=== PATIENT | male | born 1940 | race Caucasian/White ===

== ENCOUNTER → 2018-03-27 | Outpatient (CLI) | payer MEDICARE, OTHER ==
[~2018-03-27] MED LIST: ANTIVERT12.5 MG PO; BACTRIM DS TAB1 EACH PO; LISINOPRIL-HCT1 EAC1 PO
== END ==
LOC: MRI 14:35
PROVIDERS: ATTEND Family Medicine
DX: S33.5XXA Sprain of ligaments of lumbar spine, initial encounter (principal); M12.88 Other specific arthropathies, not elsewhere classified, other specified site; M62.838 Other muscle spasm
CPT/HCPCS: 72148

== ENCOUNTER 2018-04-09 23:02 | Inpatient (IN) | payer MEDICARE, OTHER ==
[~2018-04-09] VITALS: Ht 172.7 cm; Wt 103.1 kg
[2018-04-09 23:49] LABS: BASOPHILS # (AUTO) 0.1 (0.0-0.1); BASOPHILS % 0.8 % (0.0-1.0); EOSINOPHILS # (AUTO) 0.3 (0.0-0.4); EOSINOPHILS % 3.7 % (0.0-6.0); HEMATOCRIT 40.2 % (38.2-49.6); HEMOGLOBIN 14.2 g/dL (14.0-18.0); LYMPHOCYTES # (AUTO) 2.8 (1.0-3.2); LYMPHOCYTES % 33.1 % (18.0-39.1); MEAN CORPUSCULAR HEMOGLOBIN 32.3 pg (28-32); MEAN CORPUSCULAR HGB CONC 35.3 g/dL (31-35); MEAN CORPUSCULAR VOLUME 91.4 fL (81-99); MONOCYTES # (AUTO) 0.7 (0.2-0.8); MONOCYTES % 8.1 % (4.4-11.3); NEUTROPHILS # (AUTO) 4.6 (2.1-6.9); NEUTROPHILS % 54.1 % (38.7-80.0); PLATELET COUNT 190 x10e3/uL (140-360); RED CELL DISTRIBUTION WIDTH 13.2 % (11.7-14.4)
[2018-04-10] VITALS (9 sets, daily range): BP systolic 109–147; BP diastolic 79–86
[2018-04-10] MEDS: PIPER-TAZ 3.375 GM 50 ML IV SCH ×4 (00:03→21:33)
[2018-04-10 00:16] LABS: ALBUMIN/GLOBULIN RATIO 1.1 (0.8-2.0); ANION GAP 15.7 mmol/L (8-16); CALCIUM 11.5 mg/dL (8.4-10.2); CREATININE, SERUM 1.21 mg/dL (0.72-1.25); POTASSIUM 3.7 mmol/L (3.5-5.1)
[2018-04-10] MEDS: VANCOMYCIN 1GM/NS 250 ML 250 ML IV SCH ×3 (00:43→22:14)
[2018-04-10] MEDS ORDERED: FLOMAX0.4 MG PO (00:44)
[2018-04-10] MEDS ORDERED: ONDANSETRON HCL INJ 2 MG/ML VIAL IV PRN (00:45)
[2018-04-10] MEDS ORDERED: ACETAMINOPHEN 325 MG TAB PO PRN (00:45)
[2018-04-10] MEDS: SODIUM CHLORIDE 0.9% 1000ML 1,000 ML IV SCH ×3 (02:07→20:39)
[2018-04-10] MEDS: HYDROMORPHONE 1MG/1ML INJ IV PRN ×3 (05:35→22:14)
[2018-04-10] MEDS: LISINOPRIL 20 MG TAB PO SCH (14:20)
[2018-04-10] MEDS: TAMSULOSIN HCL 0.4 MG CAP PO SCH (14:20)
[2018-04-10] MEDS: HYDROCHLOROTHIAZIDE 25 MG TAB PO SCH (14:20)
[2018-04-11] VITALS (8 sets, daily range): BP systolic 110–128; BP diastolic 63–82
[2018-04-11] MEDS: SODIUM CHLORIDE 0.9% 1000ML 1,000 ML IV SCH ×2 (00:32→08:32)
[2018-04-11 04:39] LABS: BASOPHILS # (AUTO) 0.1 (0.0-0.1); BASOPHILS % 0.8 % (0.0-1.0); EOSINOPHILS # (AUTO) 0.3 (0.0-0.4); EOSINOPHILS % 4.1 % (0.0-6.0); HEMATOCRIT 36.9 % (38.2-49.6); HEMOGLOBIN 12.6 g/dL (14.0-18.0); LYMPHOCYTES # (AUTO) 2.8 (1.0-3.2); LYMPHOCYTES % 35.7 % (18.0-39.1); MEAN CORPUSCULAR HEMOGLOBIN 31.9 pg (28-32); MEAN CORPUSCULAR HGB CONC 34.1 g/dL (31-35); MEAN CORPUSCULAR VOLUME 93.4 fL (81-99); MONOCYTES # (AUTO) 0.5 (0.2-0.8); MONOCYTES % 6.7 % (4.4-11.3); NEUTROPHILS # (AUTO) 4.1 (2.1-6.9); NEUTROPHILS % 52.3 % (38.7-80.0); PLATELET COUNT 168 x10e3/uL (140-360); RED BLOOD COUNT 3.95 x10e6/uL (4.3-5.7); RED CELL DISTRIBUTION WIDTH 13.1 % (11.7-14.4)
[2018-04-11 04:58] LABS: ALANINE AMINOTRANSFERASE 37 IU/L (0-55); ALBUMIN 3.3 g/dL (3.5-5.0); ALBUMIN/GLOBULIN RATIO 1.1 (0.8-2.0); ALKALINE PHOSPHATASE 79 IU/L (40-150); ANION GAP 9.2 mmol/L (8-16); BLOOD UREA NITROGEN 24 mg/dL (7-26); BUN/CREATININE RATIO 21 (6-25); CALCIUM 10.1 mg/dL (8.4-10.2); CARBON DIOXIDE 28 mmol/L (22-29); CHLORIDE 107 mmol/L (98-107); CREATININE, SERUM 1.15 mg/dL (0.72-1.25); EST GLOMERULAR FILTRATION RATE > 60 ML/MIN (60-); GLUCOSE 93 mg/dL (74-118); POTASSIUM 3.2 mmol/L (3.5-5.1); SODIUM 141 mmol/L (136-145)
[2018-04-11] MEDS: PIPER-TAZ 3.375 GM 50 ML IV SCH ×3 (04:59→21:51)
[2018-04-11] MEDS: LISINOPRIL 20 MG TAB PO SCH (09:00)
[2018-04-11] MEDS: HYDROCHLOROTHIAZIDE 25 MG TAB PO SCH (09:00)
[2018-04-11] MEDS: TAMSULOSIN HCL 0.4 MG CAP PO SCH (09:00)
[2018-04-11] MEDS: VANCOMYCIN 1GM/NS 250 ML 250 ML IV SCH ×2 (11:15→23:15)
[2018-04-11] MEDS: HYDROMORPHONE 1MG/1ML INJ IV PRN (14:10)
[2018-04-11] MEDS ORDERED: POTASSIUM CHLORIDE 20 MEQ TAB CR PO ONE (16:00)
--- NOTE | 2018-04-11 16:39 | Progress Note ---
DATE: INTERNAL MEDICINE PROGRESS NOTE SUBJECTIVE: Patient is doing well. No significant complaint. PHYSICAL EXAMINATION VITAL SIGNS: Blood pressure is 127/72. Temperature 98.3. Heart rate 60 per minute. Respiratory rate is 20 per minute. Oxygen saturation 95%. HEART: Regular rhythm. Normal S1, S2 sounds. LUNGS: Clear bilaterally. ABDOMEN: Soft. EXTREMITIES: Significantly decreased redness on both lower extremities. BLOOD WORK: BMP: Sodium 141, potassium 3.2, chloride 107, CO2 28, BUN 24, creatinine 1.15. Glucose 93. On the CBC, white blood count 7.90, hemoglobin 12.6, hematocrit 36.9, platelet count 168,000. AST 27, ALT 37, total bilirubin 0.4, alkaline phosphatase 99. FINAL IMPRESSION 1. Cellulitis on both lower extremities. 2. Hypertension. 3. Hypertensive nephropathy. 4. Krogu-ke-crgzent renal failure, stage 2 to 3. 5. Hypokalemia. PLAN OF TREATMENT: Continue Zosyn 3.375 grams IV piggyback q.8 h., vancomycin 1 g IV piggyback twice a day. We are going to continue lisinopril 20 mg daily. Hydrochlorothiazide is going to be discontinued. Continue Tylenol 650 mg q.4 h. as needed for pain or fever, Dilaudid 1 mg IV q.3 h. as needed, Flomax 0.4 mg daily. As I said, tentative discharge is for tomorrow should the patient feel better and should the redness be gone. If okay with Dr. Abreu, we can switch the antibiotic to an oral antibiotic and let the patient go home tomorrow as long as there is significant improvement in his cellulitis and no fever. We are going to replace the potassium with 40 mEq p.o. today. We are going to recheck the potassium and magnesium levels tomorrow. Job#: [id number]
[2018-04-12] VITALS: BP 127/77
[2018-04-12 04:00] VITALS: BP 137/82
[2018-04-12] MEDS: PIPER-TAZ 3.375 GM 50 ML IV SCH (05:28)
[2018-04-12 05:47] LABS: ANION GAP 10.6 mmol/L (8-16); BLOOD UREA NITROGEN 19 mg/dL (7-26); BUN/CREATININE RATIO 19 (6-25); CALCIUM 10.4 mg/dL (8.4-10.2); CARBON DIOXIDE 26 mmol/L (22-29); CHLORIDE 107 mmol/L (98-107); EST GLOMERULAR FILTRATION RATE > 60 ML/MIN (60-); GLUCOSE 89 mg/dL (74-118); POTASSIUM 3.6 mmol/L (3.5-5.1); SODIUM 140 mmol/L (136-145)
[2018-04-12 07:30] VITALS: BP 137/82
[2018-04-12 08:00] VITALS: BP 128/87
[2018-04-12] MEDS: TAMSULOSIN HCL 0.4 MG CAP PO SCH (08:30)
[2018-04-12] MEDS ORDERED: LISINOPRIL 20 MG TAB PO SCH (09:00)
[2018-04-12] MEDS ORDERED: HYDROCHLOROTHIAZIDE 25 MG TAB PO SCH (09:00)
[2018-04-12 12:00] VITALS: BP 113/76
[2018-04-12] MEDS ORDERED: DOXYCYCLINE HY100 MG PO (14:54)
--- NOTE | 2018-04-12 15:42 | Progress Note ---
DATE: INTERNAL MEDICINE PROGRESS NOTE DICTATION STOPPED AT THIS POINT. Job#: [id number]
--- NOTE | 2018-04-12 20:50 | Discharge Summary ---
HISTORY OF PRESENT ILLNESS: A 77-year-old male, who came with cellulitis on both lower extremities, which is practically resolved right now. He has no fever. White blood count is normal. We are going to discharge him home if okay with Dr. Abreu. PHYSICAL EXAM VITALS: Blood pressure 128/87, temperature 96.2, heart rate 63 per minute, respiratory rate is 18 per minute, oxygen saturation 95%. EXTREMITIES: Show significantly decrease on the redness on both lower extremities, very minimal macular spots on his feet, but no significant redness, no fever, no white blood count. On the BMP, sodium 140, potassium 3.6, chloride 107, CO2 26, BUN 19, creatinine 1.0, glucose 89. On the CBC, white blood count 7.90, hemoglobin 12.6, hematocrit 36.9, platelet count 168,000. AST 57, ALT 37, total bilirubin 0.4, alkaline phosphatase of 79. FINAL IMPRESSIONS 1. Cellulitis on both lower extremities. 2. Hypertension. 3. Benign prostatic hypertrophy. PLAN OF TREATMENT: Patient going to go home with doxycycline 100 mg twice a day for 10 days. Resume rest of medication, which include lisinopril 20 mg daily. Flomax 0.4 mg daily. Hydrochlorothiazide 25 mg daily. Follow up with Dr. Rodriguez, his primary care physician. Discharge okay with Dr. Abreu. BAILEY BONILLA MD Job#: [id number] CQ
== END 2018-04-12 15:18 | disposition home or self-care (01) | DRG 603 ==
LOC: ER 23:02 → ERHOLD 04-10 00:32 → MED/SURG3 04-10 01:37
DX: L03.116 Cellulitis of left lower limb (principal); N17.9 Acute kidney failure, unspecified; L03.115 Cellulitis of right lower limb; I12.9 Hypertensive chronic kidney disease with stage 1 through stage 4 chronic kidney disease, or unspecified chronic kidney disease; N18.3 Chronic kidney disease, stage 3 (moderate); E87.6 Hypokalemia; N40.0 Benign prostatic hyperplasia without lower urinary tract symptoms
CPT/HCPCS: 36415; 80048; 80053; 83735; 85025; 87040; 99284; J1170; J2543; J3370; J7030

== ENCOUNTER 2018-04-30 07:39 | Observation (INO) | payer MEDICARE, OTHER ==
[2018-04-28 17:40] LABS: BASOPHILS # (AUTO) 0.1 (0.0-0.1); BASOPHILS % 0.7 % (0.0-1.0); EOSINOPHILS # (AUTO) 0.3 (0.0-0.4); EOSINOPHILS % 2.9 % (0.0-6.0); HEMATOCRIT 40.6 % (38.2-49.6); HEMOGLOBIN 13.8 g/dL (14.0-18.0); LYMPHOCYTES % 32.8 % (18.0-39.1); MEAN CORPUSCULAR HEMOGLOBIN 31.6 pg (28-32); MEAN CORPUSCULAR VOLUME 92.9 fL (81-99); MONOCYTES # (AUTO) 0.6 (0.2-0.8); MONOCYTES % 6.7 % (4.4-11.3); NEUTROPHILS # (AUTO) 5.2 (2.1-6.9); NEUTROPHILS % 56.7 % (38.7-80.0); PLATELET COUNT 184 x10e3/uL (140-360); RED BLOOD COUNT 4.37 x10e6/uL (4.3-5.7); RED CELL DISTRIBUTION WIDTH 13.1 % (11.7-14.4)
[2018-04-28 17:49] LABS: INR 1.21; PROTHROMBIN TIME 14.4 seconds (11.9-14.5)
[2018-04-28 17:50] LABS: PARTIAL THROMBOPLASTIN TIME 29.7 seconds (23.8-35.5)
[2018-04-28 17:54] LABS: ANION GAP 12.8 mmol/L (8-16); BLOOD UREA NITROGEN 24 mg/dL (7-26); BUN/CREATININE RATIO 21 (6-25); CALCIUM 11.7 mg/dL (8.4-10.2); CARBON DIOXIDE 30 mmol/L (22-29); CHLORIDE 106 mmol/L (98-107); CREATININE, SERUM 1.16 mg/dL (0.72-1.25); EST GLOMERULAR FILTRATION RATE > 60 ML/MIN (60-); GLUCOSE 98 mg/dL (74-118); POTASSIUM 3.8 mmol/L (3.5-5.1); SODIUM 145 mmol/L (136-145)
--- NOTE | 2018-04-29 14:22 | Diagnostic Imaging Report ---
PROCEDURE: Frontal and lateral views of the chest. COMPARISON: None. INDICATIONS: PRE-OP FINDINGS: Lines/tubes: None. Lungs: The lungs are moderately inflated and clear. There is no evidence of pneumonia or pulmonary edema. Pleura: There is no pleural effusion or pneumothorax. Heart and mediastinum: The heart and the mediastinum are normal. Bones: No acute bony abnormality. IMPRESSION: No acute cardiopulmonary disease. Dictated by: Preston Land M.D. on 04/29/2018 at 14:28 Electronically approved by: Preston Land M.D. on 04/29/2018 at 14:28
[~2018-04-30] VITALS: Ht 172.7 cm; Wt 103.4 kg
[~2018-04-30 07:39] MED LIST changes: +ACETAMINOPHEN 1000 MG/100 ML 100 ML IV ONE; +DOXYCYCLINE HY100 MG PO; +FLOMAX0.4 MG PO; +LIDOCAINE HCL (LTA) 4 ML SOLN ONE
[2018-04-30] MEDS ORDERED: BUPIVACAINE 0.5%/EPI 30 ML SDV INJ ONE (08:39)
[2018-04-30] MEDS ORDERED: BACITRACIN 50,000 UNIT VIAL ONE (08:39)
[2018-04-30] MEDS ORDERED: GELATIN SPONGE SZ 100 ONE (08:39)
[2018-04-30] MEDS ORDERED: THROMBIN FOR SOLN 5,000 UNIT VIAL ONE (08:39)
[2018-04-30] MEDS ORDERED: CEFAZOLIN SOD 1 GM VIAL ONE (08:54)
[2018-04-30] MEDS ORDERED: ZOLPIDEM TARTRATE 5 MG TAB PO PRN (11:45)
[2018-04-30] MEDS ORDERED: MAGNESIUM/ALUMINUM/SIMETHICONE 30 ML UDC PO PRN (11:45)
[2018-04-30] MEDS ORDERED: ONDANSETRON HCL INJ 2 MG/ML VIAL IV PRN (11:45)
[2018-04-30] MEDS ORDERED: OXYCODONE/ACETAMINOPHEN 5-325 1 EACH TABLET PO PRN (11:45)
[2018-04-30] MEDS ORDERED: MORPHINE SULFATE 5 MG/ML VIAL IM PRN (11:45)
[2018-04-30] MEDS ORDERED: CEPACOL SORE THROAT LOZENGES PO PRN (11:45)
[2018-04-30] MEDS ORDERED: ACETAMINOPHEN 325 MG TAB PO PRN (11:45)
[2018-04-30] MEDS ORDERED: CARISOPRODOL 350 MG TAB PO PRN (11:45)
[2018-04-30] MEDS ORDERED: PROMETHAZINE HCL (IM) 25 MG/ML VIAL IM PRN (11:45)
[2018-04-30] MEDS: LACTATED RINGER'S 1,000 ML IV SCH ×2 (11:45→20:05)
[2018-04-30 13:05] VITALS: BP 116/85
--- NOTE | 2018-04-30 13:45 | Operative Report ---
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 POSTOPERATIVE DIAGNOSIS: Left L4-5 foraminal disk herniation, M51.16. PROCEDURE: Left L4-5 laminotomy, medial facetectomy and microsurgical diskectomy, [id number]. ANESTHESIA: General. INDICATIONS: The patient is a 77-year-old man, who presents with left L4-5 disk herniation with superior and lateral migration of the extruded disk fragment into the proximal portion of the left L4 neural foramen symptomatic with left L4 radiculopathy. He was taken to the operating room for a microsurgical resection of the extruded disk fragment. DESCRIPTION OF PROCEDURE: After the induction of general anesthesia, the patient was placed on the operating table in the prone position over a Darion frame. The lumbar region was prepped and draped in a sterile fashion. A preoperative x-ray was obtained. A small midline incision was created. The lumbar fascia was opened to the left of the midline, and subperiosteal dissection was carried out to expose the left-sided L4 and L5 laminae and the medial aspect of the L4-5 facet joint. A 2nd x-ray confirmed correct localization. The operating microscope was brought in. A high-speed drill equipped with a isaura bur was used to drill the inferior aspect of the lamina of L4 and the medial rim of the L4-5 facet joint. The medial ligamentum flavum was resected. The lateral margin of the dural sac was exposed. A ball probe was passed superolaterally in the direction of the left L4 neural foramina and used to retrieve the edge of the large extruded disk material, which was grasped with a micro-pituitary rongeur and removed. This maneuver was repeated numerous times, and numerous fragments of disk were retrieved and removed from the left L4 neural foramen until the foramen was fully decompressed and a ball probe could be passed laterally without encountering any resistance. The disk annulus was then examined and found to be relatively intact. The disk space was not violated during this operation. The wound was irrigated with bacitracin solution. Meticulous hemostasis was secured. A small piece of Gelfoam was left in the lateral recess for hemostasis. The wound was closed in multiple layers with #0 and 2-0 Vicryl sutures. The skin was closed with 3-0 Monocryl sutures in a subcuticular fashion. Steri-Strips and a dressing were applied. The patient was awakened, extubated, and taken to the postanesthesia care unit in stable condition. No intraoperative complications were encountered. Estimated blood loss was 10 mL. Job#: [id number]
[2018-04-30 13:49] VITALS: BP 116/85
[2018-04-30] MEDS ORDERED: CEFAZOLIN SOD 1 GM/D5W 50ML 50 ML IV SCH (14:00)
[2018-04-30] MEDS: CEFAZOLIN SOD 1 GM VIAL IV SCH ×2 (15:05→20:45)
[2018-04-30 15:08] VITALS: BP 113/74
[2018-04-30] MEDS ORDERED: FENTANYL CITRATE/PF 100MCG/2 ML INJ ONE (16:44)
[2018-04-30] MEDS ORDERED: DEXAMETHASONE SOD PHOS INJ 4 MG/ML VIAL ONE (18:09)
[2018-04-30] MEDS ORDERED: PROPOFOL IV EMULSION 10 MG/ML 20 ML VIAL ONE (18:09)
[2018-04-30] MEDS ORDERED: GLYCOPYRROLATE INJ 1MG/ 5 ML SYR ONE (18:09)
[2018-04-30] MEDS ORDERED: NEOSTIGMINE 5 MG/5ML SYR ONE (18:09)
[2018-04-30] MEDS ORDERED: ROCURONIUM BROMIDE 10 MG/ML 5ML VIAL ONE (18:09)
[2018-04-30] MEDS ORDERED: LIDOCAINE HCL 2% LOCAL INJ 5 ML SDV VIAL INJ ONE (18:09)
[2018-04-30] MEDS ORDERED: ONDANSETRON HCL INJ 2 MG/ML VIAL ONE (18:09)
[2018-04-30] MEDS ORDERED: SEVOFLURANE INHAL SOLN 250 ML PEN BTL ONE (18:09)
[2018-04-30] MEDS: TAMSULOSIN HCL 0.4 MG CAP PO SCH (18:34)
[2018-04-30 19:05] VITALS: BP 117/84
[2018-04-30 20:00] VITALS: BP 117/84
[2018-05-01 00:15] VITALS: BP 95/55
[2018-05-01] MEDS: LACTATED RINGER'S 1,000 ML IV SCH (04:25)
[2018-05-01 05:15] VITALS: BP 101/59
[2018-05-01] MEDS: CEFAZOLIN SOD 1 GM VIAL IV SCH (05:44)
[2018-05-01 08:12] VITALS: BP 86/47
[2018-05-01] MEDS ORDERED: NORCO 7.5-3251 EACH PO (08:25)
[2018-05-01 08:55] VITALS: BP 86/47
[2018-05-01] MEDS ORDERED: HYDROCHLOROTHIAZIDE 25 MG TAB PO SCH (09:00)
[2018-05-01] MEDS ORDERED: LISINOPRIL 20 MG TAB PO SCH (09:00)
[2018-05-01] MEDS: TAMSULOSIN HCL 0.4 MG CAP PO SCH (09:38)
[2018-05-01 12:02] VITALS: BP 81/51
[2018-05-01] MEDS ORDERED: TAMSULOSIN HCL 0.4 MG CAP PO SCH (21:00)
== END 2018-05-01 12:52 | disposition home or self-care (01) ==
LOC: OR 07:39 → PACU V 11:46 → IMCU 12:42
PROVIDERS: ADMIT Neurological Surgery; ATTEND Neurological Surgery
DX: M51.16 Intervertebral disc disorders with radiculopathy, lumbar region (principal); I10 Essential (primary) hypertension
CPT/HCPCS: 36415; 63047; 71046; 72020; 80048; 85025; 85610; 85730; 86850; 86900; 86920; 88304; 93005; G0378 ×2; J0690 ×2; J1100; J2001; J2270; J2405; J3490; J7120

== ENCOUNTER → 2018-06-04 | Outpatient (CLI) | payer MEDICARE, OTHER ==
[~2018-06-04] MED LIST changes: -ACETAMINOPHEN 1000 MG/100 ML 100 ML IV ONE; +GADOBENATE DIMEGLUMINE 1 ML IV ONE; -LIDOCAINE HCL (LTA) 4 ML SOLN ONE; +NORCO 7.5-3251 EACH PO
[2018-06-04 11:01] LABS: BLOOD UREA NITROGEN 25 mg/dL (7-26); BUN/CREATININE RATIO 26 (6-25); CREATININE, SERUM 0.98 mg/dL (0.72-1.25); EST GLOMERULAR FILTRATION RATE > 60 ML/MIN (60-)
--- NOTE | 2018-06-05 13:35 | Diagnostic Imaging Report ---
History: 77-year-old male with radiculopathy the lumbar region, back and left leg pain for over 3 months and prior surgery in April 2018 Comparison studies: MRI lumbar spine 03/27/2018 Technique: Sagittal T1, T2, STIR, axial T1 and T2, post contrast axial and sagittal T1 Intravenous contrast: 20 cc cc of MultiHance Findings: Number of lumbar vertebral bodies:Five. Alignment: Normal lumbar lordosis. No scoliosis . Lower thoracic cord: Normal in signal and morphology. The tip of the conus is at L1-L2 . Soft tissues: No T2 hyperintense inflammatory changes. Paraspinal muscles: Stable fatty infiltration of the paraspinous muscles Vertebrae: No compression fractures, infection or neoplasm. The previously noted lesions in T12 and L3 are stable, likely representing intraosseous hemangiomas Degenerative changes: L1-L2: Stable decreased T2 signal within the disc. Stable symmetric bulging disc with 2.3 mm of posterior mass effect. Spinal canal widely patent. Bilateral neuroforamina are widely patent. L2-L3: Stable decreased T2 signal within the disc. Stable symmetric bulging disc with 2.6 mm of posterior mass effect. Spinal canal widely patent. Mild narrowing of bilateral foramen. L3-L4: Stable decreased T2 signal within the disc space. Mild interval decrease height of disc. Symmetric bulging disc with 1.7 mm of posterior mass effect, slightly increased. Mild to moderate narrowing of the spinal canal. Mild thickening of the ligamentum flavum. Mild to moderate bilateral foraminal narrowing, stable. 4 mm synovial cyst associated with the right facet joint L4-L5: Postoperative changes are noted. The previously noted left foraminal 15 x 13 x 6 mm disc extrusion is no longer present. Enhancing scar surrounds the left foramen. There is a nonenhancing left asymmetric bulging disc surrounded by scar. Nonenhancing portion demonstrates 4 mm of posterior mass effect, and overlying 1 mm enhancing scar. Stable decreased T2 signal within the disc space. Spinal canal is widely patent. Mild to moderate right foraminal narrowing. Moderate to severe left foraminal narrowing from combination of enhancing scar and asymmetric bulging disc. Fluid within the left facet joints, likely postsurgical. Stable bilateral facet arthropathy. L5-S1: Stable decreased T2 signal within the disc. Symmetric bulging disc with 2.6 mm of posterior mass effect. Spinal canal is widely patent. Mild narrowing at the right foramen. Moderate narrowing of the left foramen. Stable bilateral facet arthropathy. Additional findings: None IMPRESSION: 1. Postoperative changes at L4-L5 with removal of the 15 mm left foraminal disc extrusion with no evidence of residual. Left asymmetric bulging disc at the same level with 4 mm of posterior mass effect and 1 mm of adjacent enhancing scar. 2. Foraminal narrowing greatest on the left, L4-L5 moderate to severe, and L5-S1 moderate. Signed by: Dr. Manan Clark M.D. on 06/05/2018 1:31 PM
== END ==
LOC: MRI 10:01
PROVIDERS: ATTEND Neurological Surgery
DX: M51.16 Intervertebral disc disorders with radiculopathy, lumbar region (principal)
CPT/HCPCS: 36415; 72158; 82565; 84520

== ENCOUNTER 2018-07-17 10:00 | Outpatient (RCR) | payer MEDICARE, OTHER ==
[~2018-07-17 10:00] MED LIST changes: -GADOBENATE DIMEGLUMINE 1 ML IV ONE
== END 2018-07-22 ==
LOC: PT 10:00
PROVIDERS: ATTEND Neurological Surgery
DX: M51.16 Intervertebral disc disorders with radiculopathy, lumbar region (principal)
CPT/HCPCS: 97110 ×5; 97162; G8978; G8979

== ENCOUNTER → 2018-08-21 | Outpatient (RCR) | payer MEDICARE, OTHER | LOC: PT 07-28 10:20 | PROVIDERS: ATTEND Neurological Surgery | DX: M51.16 Intervertebral disc disorders with radiculopathy, lumbar region (principal) | CPT/HCPCS: 97010; 97110 ×10; 97139; 97140 ×5; 97530; G8978; G8979 ==

== ENCOUNTER → 2018-09-29 | Outpatient (CLI) | payer MEDICARE, OTHER ==
[~2018-09-29] MED LIST changes: +GADOBENATE DIMEGLUMINE 1 ML IV ONE
[2018-09-29 09:19] LABS: BLOOD UREA NITROGEN 23 mg/dL (7-26); BUN/CREATININE RATIO 27 (6-25); CREATININE, SERUM 0.86 mg/dL (0.72-1.25); EST GLOMERULAR FILTRATION RATE > 60 ML/MIN (60-)
--- NOTE | 2018-09-29 17:06 | Diagnostic Imaging Report ---
History: 78-year-old male 7 months status post fall, status post discectomy April 2018, left leg pain Comparison studies: 03/27/2018 and 06/04/2018 Technique: Sagittal T1, T2, STIR, axial T1 and T2, post contrast axial and sagittal T1 Intravenous contrast: 20 cc of MultiHance Findings: Number of lumbar vertebral bodies:Five. Alignment: Normal lumbar lordosis. No scoliosis . Lower thoracic cord: Normal in signal and morphology. The tip of the conus is at L1-L2 . Soft tissues: No T2 hyperintense inflammatory changes. Paraspinal muscles: Stable fatty infiltration of the paraspinous muscles Vertebrae: No compression fractures, infection or neoplasm. Degenerative changes: L1-L2: Stable with decreased T2 signal within the disc. Stable symmetric bulging disc with 2.6 mm of posterior mass effect. Spinal canal is widely patent. Bilateral neuroforamina are widely patent. L2-L3: Stable decreased T2 signal within the disc. Symmetric bulging disc slightly increased with 3.3 mm of posterior mass effect. Spinal canal is widely patent. Mild narrowing of bilateral neural foramen which is stable. L3-L4: Stable decreased T2 signal within the disc space. Stable symmetric bulging disc with 1.8 mm of posterior mass effect. Stable mild thickening of the ligamentum flavum. Stable mild narrowing of the spinal canal. Stable so small synovial cyst. Syht-ja-ekriwalg stable foraminal narrowing. L4-L5: Stable postoperative changes. Within the left lateral recess and the left foramen there is a 9 x 7 mm intermediate T1 and T2 signal structure, that is new compared to the prior study which demonstrates near complete enhancement on postcontrast imaging consistent with scar. Better visualization is likely due to decrease in postoperative inflammation. Within the far lateral portion of the foramen there is a 5 mm region that does not enhance. Stable postoperative enhancement is seen along the operative tract. Marked fluid is present within the left facet joint. Stable bilateral lateral facet arthropathy. L5-S1: Stable decreased T2 signal within the disc. Symmetric bulging disc with 2 mm posterior mass effect. Spinal canal is widely patent. Stable mild narrowing of right foramen. Stable moderate narrowing of the left foramen. Stable bilateral facet arthropathy. IMPRESSION: 1. Postoperative changes at L4-L5 with removal of the left 15 mm disc extrusion. Interval decrease in postoperative inflammation resulting in better visualization of a 9 x 7 mm enhancing scar, with trace nonenhancing residual disc centrally and far laterally 2. Foraminal narrowing greatest on the left, L4-L5 Signed by: Dr. Manan Clark M.D. on 09/29/2018 5:03 PM
== END ==
LOC: MRI 08:26
PROVIDERS: ATTEND Neurological Surgery
DX: M51.16 Intervertebral disc disorders with radiculopathy, lumbar region (principal)
CPT/HCPCS: 36415; 72158; 82565; 84520; A9577